=== PATIENT | female | born 1995 | race Asian ===

== ENCOUNTER 2018-09-13 17:20 | Emergency (ER) | payer OTHER ==
[2018-09-13 17:36] VITALS: BP 115/81
--- NOTE | 2018-09-13 18:03 | UC ---
Lower Extremity/Ankle HPI - HPI Summary HPI Summary: 22 y/o female presents to the urgent care c/o B/L great toe w/ ingrown toe nails since this past weekend. Pt reports she has pedicure done last week and she noticed mild redness the next day. She has bee soaking her toes in warm water and applying OTC topical antibiotic w/o any improvement. Yesterday pain increased and she noticed some yellowish drainage. Pain is 5/10 at touch. Pt denies Hx of MRSA, numbness or tingling sensation over the great toes of feet, calf pain, fever, SOB, chest pain, abdominal pain, N/V/d. or rashes. - History of Current Complaint Chief Complaint: [place] Stated Complaint: INGROWN TOENAIL Time Seen by Provider: 09/13/18 17:58 Hx Last Menstrual Period: 09/12/18 ?: No Onset/Duration: Gradual Onset, Still Present, Worse Since - yesterday Severity Initially: Mild Severity Currently: Moderate Pain Intensity: 5 Pain Scale Used: 0-10 Numeric Aggravating Factor(s): Ambulation Alleviating Factor(s): Rest, OTC Meds Able to Bear Weight: Yes - Risk Factors Gout Risk Factors: Negative DVT Risk Factors: Negative Septic Arthritis Risk Factor: Negative - Allergies/Home Medications Allergies/Adverse Reactions: Allergies Allergy/AdvReac Type Severity Reaction Status Date / Time seasonal Allergy Congestion Uncoded 09/13/18 17:36 Home Medications: Home Medications Beta-Glucan, (1-3) (1-4) [Beta Glucan] 1 pow PO DAILY 09/13/18 [History Confirmed 09/13/18] [place]-3 Fatty Acids/Fish Oil [Fish Oil 1,000 mg Softgel] 1 each PO DAILY [History Confirmed 09/13/18] PMH/Surg Hx/FS Hx/Imm Hx Previously Healthy: Yes Respiratory History: Asthma - Surgical History Surgical History: Yes Surgery Procedure, Year, and Place: dental surgery x4 - Family History Known Family History: Positive: Unknown - Pt is adopted - Social History Occupation: Student Lives: With Family Alcohol Use: Rare Substance Use Type: None Smoking Status (MU): Never Smoked Tobacco - Immunization History Vaccination Up to Date: Yes Review of Systems All Other Systems Reviewed And Are Negative: Yes Constitutional: Positive: Negative Skin: Positive: Other - painful swelling, rendess and drainage aroun both great toes Eyes: Positive: Negative ENT: Positive: Negative Respiratory: Positive: Negative Cardiovascular: Positive: Negative Gastrointestinal: Positive: Negative Genitourinary: Positive: Negative Motor: Positive: Negative Neurovascular: Positive: Negative Musculoskeletal: Positive: Other: - B/L great toe pain Neurological: Positive: Negative Psychological: Positive: Negative Is Patient Immunocompromised?: No Physical Exam - Summary Physical Exam Summary: Vital Signs Reviewed: Yes General: well developed, well nourished female sitting in the examining table w/ o any apparent distress Eye Exam: Normal Eyes: Positive: Conjunctiva Clear - PERRLA, EOMI, fundi grossly normal ENT: Positive: Normal ENT inspection, Hearing grossly normal, Pharynx normal, TMs normal Neck: Positive: Supple, Nontender, No Lymphadenopathy Respiratory: Positive: Chest non-tender, Lungs clear, Normal breath sounds, No respiratory distress Cardiovascular: Positive: RRR, No Murmur, Pulses Normal, Brisk Capillary Refill Abdomen Description: Positive: Nontender, No Organomegaly, Soft. Negative: CVA Tenderness (R), CVA Tenderness (L) Bowel Sounds: Positive: Present Musculoskeletal: Positive: Strength Intact, ROM Intact, No Edema Neurological: Positive: Alert, Muscle Tone Normal Psychological Exam: Normal Skin: Positive: b/L great toes w/ a small erythematous pustule on the medial aspect that is indurated and fluctuant, tender to palpation, swollen, and warm to touch about .3cm in size. FROM of both great toes, sensation is intact, capillary refill WNL, reflexes WNL Triage Information Reviewed: Yes Vital Signs: Initial Vital Signs Temp 98.3 F 09/13/18 17:31 Pulse 83 09/13/18 17:31 Resp 18 09/13/18 17:31 BP 115/81 09/13/18 17:31 Pulse Ox 100 09/13/18 17:31 Lower Extremity Course/Dx - Course Course Of Treatment: 22 y/o female presents to the urgent care c/o B/L great toe w/ ingrown toe nails since this past weekend. Pt reports she has pedicure done last week and she noticed mild redness the next day. She has bee soaking her toes in warm water and applying OTC topical antibiotic w/o any improvement. Yesterday pain increased and she noticed some yellowish drainage. Pain is 5/10 at touch. Pt denies Hx of MRSA, numbness or tingling sensation over the great toes of feet, calf pain, fever, SOB, chest pain, abdominal pain, N/V/d. or rashes. Hx obtained. Pt w/ B/L great toe w/ paronychia on the medial aspect on examination. I&D of B/l great toe paronychia procedure:The procedure was explained and consent obtained. Hulbert protocol performed. Pt declined Digital block. LEt applied on both great toes for 25min to numb the area. Sterile drape and prep were done. The fluctuant center around toenail was incised with #11 blade scalpel. A small amount of caseous material was expressed . wound cultures obtained and sent to lab top r/o MRSA. wound was irrigated with normal saline. Silver nitrate appied on both excess tissue. Bacitracin topical ointment applied and wound covered with sterile dressing. The patient tolerated the procedure well. Pt Rx Keflex PO and ibuprofen PO for pain. Pt advised fever develops and pain increase despite ABX to go immediately to the ER for further management. Pt advised to f/u w/ Podiatist Dr Lawler in 2-3 days if not improvement of symptoms. Pt given post-op shoe to avoid too much flexion of great toes. D/C instructions explained. Pt understood and agreed with D/C instructions. Left the clinic ambulating A&OX3. - Differential Dx/Diagnosis Differential Diagnosis/HQI/PQRI: Cellulitis, Contusion, Infection, Sprain, Strain, Tendonitis, Other - paronychia, ingrown toe nail Provider Diagnosis: Paronychia of toe of left foot, Paronychia of toe of right foot Discharge - Sign-Out/Discharge Documenting (check all that apply): Patient Departure - d/C home All imaging exams completed and their final reports reviewed: No Studies - Discharge Plan Condition: Stable Disposition: HOME Prescriptions: Aluminum Sulf/Ca Acetate LINDA* [[place] LINDA*] 1 applic TOPICAL DAILY #1 packet Bacitracin OINTMENT* 1 applic TOPICAL TID #1 tube Cephalexin CAP* [Keflex CAP*] 500 mg PO TID #21 cap Patient Education Materials: Paronychia (ED) Referrals: [facility] [place] [facility] [Outside] - 2 Days Philip Lawler DPM [Doctor of Podiatric Medicine] - 2 Days Additional Instructions: 1-Please take full course of antibiotic to avoid resistance. Keep wound clean and dry with a sterile dressing. Apply bacitracin topical as directed 2-. Take Ibuprofen PO q6-8hrs prn for pain or swelling. soak your toes w/ [place] pkts as directed and then dry well your toes and apply Bacitracin oint as directed. trim your toe nails 3- Wound culture sent to lab, if any abnormal result you will receive a call from us. 4- If not improvement in 3 days please f/u w/ Seed Yeast Operator Dr Lawler for further evaluation and treatment - Billing Disposition and Condition Condition: STABLE Disposition: Home - Attestation Statements Provider Attestation: I was available for consult. This patient was seen by the [facility]. The patient was not presented to, seen by, or examined by me. -Emil
[2018-09-13] MEDS ORDERED: Lidocaine/Epineph/Tetraca GEL* 3 ML GEL IN SYR TOPICAL ONE (18:17)
[2018-09-13] MEDS ORDERED: Dexamethasone IV* 4 MG/ML 1 ML (4 MG) ONE (18:34)
--- NOTE | 2018-09-15 09:11 | ED ---
Progress - Progress Note Progress Note: wound culture/Gram stain report reviewed 1+ epithelial cells, no neutrophils, no organisms Wound culture pending Patient is already on Keflex for paronychia. No change. Await final culture/sensitivity report Course/Dx - Diagnoses Provider Diagnoses: Paronychia of toe of left foot, Paronychia of toe of right foot Discharge - Sign-Out/Discharge Documenting (check all that apply): Post-Discharge Follow Up All imaging exams completed and their final reports reviewed: No Studies - Discharge Plan Condition: Stable Disposition: HOME Prescriptions: Aluminum Sulf/Ca Acetate LINDA* [[place] LINDA*] 1 applic TOPICAL DAILY #1 packet Bacitracin OINTMENT* 1 applic TOPICAL TID #1 tube Cephalexin CAP* [Keflex CAP*] 500 mg PO TID #21 cap Patient Education Materials: Paronychia (ED) Referrals: [facility] [place] [facility] [Outside] - 2 Days Philip Lawler DPM [Doctor of Podiatric Medicine] - Additional Instructions: 1-Please take full course of antibiotic to avoid resistance. Keep wound clean and dry with a sterile dressing. Apply bacitracin topical as directed 2-. Take Ibuprofen PO q6-8hrs prn for pain or swelling. soak your toes w/ [place] pkts as directed and then dry well your toes and apply Bacitracin oint as directed. trim your toe nails 3- Wound culture sent to lab, if any abnormal result you will receive a call from us. 4- If not improvement in 3 days please f/u w/ Industrial Safety And Health Manager Dr Lawler for further evaluation and treatment - Billing Disposition and Condition Condition: STABLE Disposition: Home
--- NOTE | 2018-09-15 11:55 | UC ---
- Progress Note Progress Note: wound culture preliminary report reviewed: MRSA negative, staph aureus positive sensitivity report pending Patient is already on Keflex for paronychia. Plan: No change. Await final culture/sensitivity report Course/Dx - Diagnoses Provider Diagnoses: Paronychia of toe of left foot, Paronychia of toe of right foot Discharge - Sign-Out/Discharge Documenting (check all that apply): Post-Discharge Follow Up All imaging exams completed and their final reports reviewed: No Studies - Discharge Plan Condition: Stable Disposition: HOME Prescriptions: Aluminum Sulf/Ca Acetate LINDA* [[place] LINDA*] 1 applic TOPICAL DAILY #1 packet Bacitracin OINTMENT* 1 applic TOPICAL TID #1 tube Cephalexin CAP* [Keflex CAP*] 500 mg PO TID #21 cap Patient Education Materials: Paronychia (ED) Referrals: [facility] [place] [facility] [place] [facility] [[place]] - 2 Days Philip Lawler DPM [Doctor of Podiatric Medicine] - Additional Instructions: 1-Please take full course of antibiotic to avoid resistance. Keep wound clean and dry with a sterile dressing. Apply bacitracin topical as directed 2-. Take Ibuprofen PO q6-8hrs prn for pain or swelling. soak your toes w/ [place] pkts as directed and then dry well your toes and apply Bacitracin oint as directed. trim your toe nails 3- Wound culture sent to lab, if any abnormal result you will receive a call from us. 4- If not improvement in 3 days please f/u w/ Sail Repairer Dr Lawler for further evaluation and treatment - Billing Disposition and Condition Condition: STABLE Disposition: Home
== END 2018-09-13 19:48 | disposition home or self-care (01) ==
LOC: UCEAST 17:20
DX: L03.032 Cellulitis of left toe (principal); L03.031 Cellulitis of right toe; B95.61 Methicillin susceptible Staphylococcus aureus infection as the cause of diseases classified elsewhere; J45.909 Unspecified asthma, uncomplicated
CPT/HCPCS: 10060; 87070; 87077; 87186; 87205; 87640; 87641; 99212; A9270-GY; G0463; J1100

== ENCOUNTER 2019-04-10 20:38 | Emergency (ER) | payer OTHER ==
[2019-04-10 20:51] VITALS: BP 128/94
--- NOTE | 2019-04-10 21:12 | UC ---
Throat Pain/Nasal Kumar HPI - HPI Summary HPI Summary: Patient is a 23-year-old female presenting with complaints of throat "feeling weird like sandpaper," intermittent chills and hot flashes, and cough 2 days. Patient also notes mild nasal congestion. Denies ear pain. Denies productive cough. Denies shortness of breath and wheezing. Denies nausea, vomiting, diarrhea, and abdominal pain. Denies fever home. Denies decreased appetite and fluid intake. Patient states she thinks she might be paranoid because she had the flu last year. Took DayQuil one hour ago. - History of Current Complaint Chief Complaint: UCRespiratory Stated Complaint: FEVER Time Seen by Provider: 04/10/19 20:49 Hx Obtained From: Patient Hx Last Menstrual Period: today Onset/Duration: Gradual Onset, Lasting Days Pain Intensity: 0 - Allergies/Home Medications Allergies/Adverse Reactions: Allergies Allergy/AdvReac Type Severity Reaction Status Date / Time seasonal Allergy Congestion Uncoded 04/10/19 20:48 Home Medications: Home Medications Dayquil 1 tab PO Q12H PRN 04/10/19 [History] PMH/Surg Hx/FS Hx/Imm Hx Previously Healthy: Yes - Surgical History Surgical History: Yes Surgery Procedure, Year, and Place: dental surgery x4 - Family History Known Family History: Positive: Unknown - Pt is adopted - Social History Alcohol Use: Rare Substance Use Type: None Smoking Status (MU): Never Smoked Tobacco - Immunization History Vaccination Up to Date: Yes Review of Systems All Other Systems Reviewed And Are Negative: Yes Constitutional: Positive: Chills. Negative: Fever ENT: Positive: Sore Throat, Sinus Congestion. Negative: Ear Ache, Nasal Discharge, Sinus Pain/Tenderness Respiratory: Positive: Cough. Negative: Shortness Of Breath Cardiovascular: Positive: Negative Gastrointestinal: Positive: Negative Musculoskeletal: Negative: Arthralgia, Myalgia Neurological: Positive: Headache Physical Exam Triage Information Reviewed: Yes Appearance: Well-Appearing, No Pain Distress, Well-Nourished Vital Signs: Initial Vital Signs Temp 98.4 F 04/10/19 20:49 Pulse 74 04/10/19 20:49 Resp 18 04/10/19 20:49 BP 128/94 04/10/19 20:49 Pulse Ox 96 04/10/19 20:49 Lab Results 04/10/19 Range/Units 21:02 Group A Strep Rapid Negative (Negative) Lab Results 04/10/19 04/10/19 Range/Units 21:02 21:05 Influenza A (Rapid) Negative (Negative) Influenza B (Rapid) Negative (Negative) Group A Strep Rapid Negative (Negative) Vital Signs Reviewed: Yes Eyes: Positive: Conjunctiva Clear ENT: Positive: Hearing grossly normal, Pharyngeal erythema, TMs normal, Uvula midline. Negative: Nasal congestion, Nasal drainage, Tonsillar swelling, Tonsillar exudate, Sinus tenderness Neck exam: Normal Respiratory Exam: Normal Respiratory: Positive: Lungs clear, Normal breath sounds, No respiratory distress. Negative: Wheezing Cardiovascular Exam: Normal Cardiovascular: Positive: RRR Neurological: Positive: Alert Psychological: Positive: Age Appropriate Behavior Throat Pain/Nasal Course/Dx - Course Course Of Treatment: Discussed neg strep and flu tests and likely viral etiology of cold symptoms. Instructed to continue with symptomatic treatment and follow up with [facility] if symptoms persist. Patient voiced understanding and agreed with treatment plan. - Differential Dx/Diagnosis Provider Diagnosis: Pharyngitis Discharge ED - Sign-Out/Discharge Documenting (check all that apply): Patient Departure All imaging exams completed and their final reports reviewed: No Studies - Discharge Plan Condition: Stable Disposition: HOME Patient Education Materials: Pharyngitis (ED), Cold Symptoms (ED) Forms: *School Release Referrals: [facility] @ [Outside] - If Needed Additional Instructions: As discussed, your rapid strep and flu tests were negative today. Your symptoms are most likely caused by a virus. You may continue to take over the counter cough and cold medications as directed for your cold symptoms. Make sure you are getting plenty of rest and fluids. Follow up with [facility] if your symptoms worsen or do not resolve within 7 days. - Billing Disposition and Condition Condition: STABLE Disposition: Home
[2019-04-10 21:18] LABS: Influenza A Molecular NEGATIVE (Negative); Influenza B Molecular NEGATIVE (Negative)
== END 2019-04-10 21:30 | disposition home or self-care (01) ==
LOC: UCEAST 20:38
DX: J02.9 Acute pharyngitis, unspecified (principal); R68.83 Chills (without fever); Z91.09 Other allergy status, other than to drugs and biological substances
CPT/HCPCS: 87651; 99211; G0463